=== PATIENT | male | born 1955 | race Caucasian/White ===

== ENCOUNTER 2020-03-20 22:08 | Inpatient (IN) | payer MEDICAID ==
[~2020-03-20] VITALS: Ht 172.7 cm; Wt 76.7 kg
--- NOTE | ~2020-03-20 | EMS ---
[address] [address] EMS Patient Care Report Name: MEGHNA DOWD Room #: 170-9 ADM IN M.R.#: [id number] Admission: 03/21/20 Attend Phys: Daniel Salgado Discharge: Date of : 59 Report #: [id number] THIS REPORT FOR: //name// Report Transmitted: 03/20/2020 23:33 EMS Care Summary [place], [place]/[facility] Incident [id number] @ 03/20/2020 21:31 Incident Location [address] [place] [address] / [place] [id number] Patient MEGHNA DOWD Male, 65 Years 1955 Patient Address Patient History Atrial Fibrillation, Patient Allergies No known allergies, Patient Medications Metoprolol, Chief Complaint ETOH, UNABLE TO WALK Disposition Transported No Lights/Roundup Dispatch Reason Unknown Problem/Person Down Transported To [facility] Narrative RESPONDED TO UNKNOWN WITH PD ON SCENE. UPON ARRIVAL PT FOUND SITTING ON CURB ALERT AND ORIENTED BUT SLURRING WORDS. PT IS ETOH AND HAS LARGE BOTTLE OF VODKA IN COAT. PT IS UNABLE TO WALK ON HIS OWN AND HAS BEEN ON THE BUS ALL DAY DRINKING ALCOHOL. PT ASSISTED WALK TO AMBULANCE COT. PT DENIES ANY INJURIES OR PAIN ANYWHERE. PT VITALS AND 3 LEAD OBTAINED. PT TRANSPORTED TO [facility] AND [address] [address] EMS Patient Care Report Name: MEGHNA DOWD Room #: 170-9 ADM IN M.R.#: [id number] Admission: 03/21/20 Attend Phys: Daniel Salgado Discharge: Date of : 59 Report #: [id number] SCOOTED TO BED WITH NO CHANGE IN CONDITION. HANDRAILS UP AND REPORT GIVEN TO NURSE. Initial Vitals @21:56P: 148,SpO2: 98, @21:59P: 146,R: 20,BP: 126/57, @21:53P: 147,R: 20,BP: 141/95,Pain: 0/10,GCS: 15,Glucose: 84,SpO2: 93,Revised Trauma: 12, Assessments @21:47MENTAL:Time Oriented,Person Oriented,Place Oriented,Event Oriented,SKIN:HEENT:Head/Face: No Abnormalities,Neck/Airway: No Abnormalities,LUNG SOUNDS:General: No Abnormalities,ABDOMEN:General: No Abnormalities,PELVIS//GI:No Abnormalities,EXTREMITIES:Left Arm: No Abnormalities,Right Arm: No Abnormalities,Left Leg: No Abnormalities,Right Leg: No Abnormalities,PULSE:NEURO:No Abnormalities,@21:52MENTAL:Person Oriented,Time Oriented,Event Oriented,Place Oriented,SKIN:HEENT:Head/Face: No Abnormalities,Eyes: No Abnormalities,Neck/Airway: No Abnormalities,LUNG SOUNDS:General: No Abnormalities,Left Upper: No Abnormalities,Right Upper: No Abnormalities,Left Lower: No Abnormalities,Right Lower: No Abnormalities,ABDOMEN:General: No Abnormalities,Left Upper: No Abnormalities,Right Upper: No Abnormalities,Left Lower: No Abnormalities,Right Lower: No Abnormalities,PELVIS//GI:No Abnormalities,EXTREMITIES:Left Arm: No Abnormalities,Right Arm: No Abnormalities,Left Leg: No Abnormalities,Right Leg: No Abnormalities,PULSE:NEURO:No Abnormalities, Impression Alcohol use Procedures @21:47ALS AssessmentSucceeded@21:533-Lead ECGSucceeded Timeline 21:25,Call Received 21:,Dispatch Notified 21:31,Dispatched 21:32,En Route 21:46,On Scene 21:46,At Patient 21:47,ALS Assessment,Succeeded, 21:53,BP: 141/95 M,PULSE: 147,RR: 20 R,SPO2: 93 Ox,ETCO2: ,B,PAIN: 0,GCS: 15, 21:53,3-Lead ECG,Succeeded, 21:54,Depart Scene 21:56,BP: / M,PULSE: 148,RR: R,SPO2: 98 Ox,ETCO2: ,BG: ,PAIN: ,GCS: , 21:59,BP: 126/57 M,PULSE: 146,RR: 20 R,SPO2: Ox,ETCO2: ,BG: ,PAIN: ,GCS: , [facility] [address] [place] [address] EMS Patient Care Report Name: NILEMEGHNA Room #: 170-9 ADM IN M.R.#: [id number] Admission: 03/21/20 Attend Phys: [place] Salgado Discharge: Date of : 59 Report #: [id number] 22:02,At Destination 22:17,Call Closed Disclaimer v1.1 Copyright 2020 [employer] This EMS Care Summary contains data elements from the applicable legal record (which may be displayed differently). It is designed to provide pertinent information for the following purposes: continuity of care, clinical quality, and state data reporting. The complete legal record is available to ED staff and administrators of the receiving hospital in [employer]'s Patient Tracker. All data is provided "as is."
[2020-03-20 22:10] VITALS: BP 135/95
[2020-03-20 23:18] LABS: HEMATOCRIT 41.2 % (42.0-52.0); HEMOGLOBIN 13.6 gm/dL (14.0-18.0); MCH 29.8 pg (26.0-34.0); MCHC 32.9 g/dL (28.0-37.0); MCV 90.4 fL (80.0-100.0); PLATELET COUNT 167 thou/uL (150-400); RBC 4.56 mil/uL (4.50-6.00); RDW 19.1 % (10.5-14.5); WBC 2.6 thou/uL (4.0-11.0)
[2020-03-20 23:23] LABS: ANION GAP 15 mmol/L (7-16); BUN 16 mg/dL (7-18); CHLORIDE 107 mmol/L (98-107); CO2 23 mmol/L (21-32); CREATININE 0.9 mg/dL (0.7-1.3); GLUCOSE 91 mg/dL (74-106); POTASSIUM 3.5 mmol/L (3.5-5.1); SODIUM 145 mmol/L (136-145)
[2020-03-20 23:33] LABS: ALBUMIN 3.6 g/dL (3.4-5.0); DIRECT BILIRUBIN < 0.1 mg/dL (<0.1-0.2); SGOT 93 U/L (15-37); SGPT 85 U/L (30-65); TOTAL BILIRUBIN 0.3 mg/dL (0.2-1.0); TOTAL PROTEIN 6.7 g/dL (6.4-8.2); TROPONIN-I <0.06 ng/mL (<0.06)
[2020-03-20 23:54] LABS: ABSOLUTE NEUTROPHILS 1.1 thou/uL (1.4-8.2); ANISOCYTOSIS 2+; POLYCHROMASIA 1+
[2020-03-21] VITALS (18 sets, daily range): BP systolic 92–124; BP diastolic 55–86
[2020-03-21] MEDS ORDERED: KAPSPARGO SPRIN25 MG PO (00:02)
[2020-03-21 00:51] LABS: CHOLESTEROL 174 mg/dL (<200); HDL CHOLESTEROL 95 mg/dL (>40); LDL CHOLESTEROL 70 mg/dL (<100); TC:HDL 1.8 Ratio (Not establshd); TRIGLYCERIDE 48 mg/dL (<150); VLDL 10 mg/dL (<40)
[2020-03-21 00:55] LABS: SERUM ASSESSMENT Clear
[2020-03-21 01:43] LABS: URINE BILIRUBIN NEGATIVE (Negative); URINE BLOOD NEGATIVE (Negative); URINE CLARITY CLEAR; URINE COLOR YELLOW; URINE GLUCOSE-RANDOM* NEGATIVE (Negative); URINE KETONES NEGATIVE (Negative); URINE LEUKOCYTES-REFLEX NEGATIVE (Negative); URINE NITRITE-REFLEX NEGATIVE (Negative); URINE PROTEIN (DIPSTICK) NEGATIVE (Negative); URINE UROBILINOGEN 0.2 E.U./dl (0.2-1.0)
[2020-03-21 02:05] LABS: AMP/METHAMP Negative (Negative); BARBITURATES Negative (Negative); BENZODIAZEPINES Negative (Negative); COCAINE Negative (Negative); METHADONE Negative (Negative); OPIATES Negative (Negative); PCP Negative (Negative)
--- NOTE | 2020-03-21 07:05 | NUR ---
PT ARRIVED TO UNIT APPROX 0130, ADMISSION AND ASSESSMENT COMPLETED. PT DROWSY BUT ANSWERS ALL QUESTIONS W/ WANDERING THOUGHT PROCESS. REPORTS DEPRESSION AND CHRONIC HEAVY ALCOHOL USE; UNABLE TO REMEMBER ANY MEDICATIONS EXCEPT METOPROLOL AND BUPROPION. MULTIPLE RECENT FALLS R/T ALCOHOL USE, HAS SCABS ON LEFT LEG AND OPEN SKIN TEAR RIGHT KNEE. HAS BEEN AFIB 90-105 OVERNIGHT; BP SOFT ON ARRIVAL TO UNIT, REDUCED CARDIZEM DRIP TO 10 MG/HR. SLIGHTLY MORE IMPULSIVE THIS AM; REMOVED SCD'S TO REDUCE FALL RISK. NO OTHER CONCERNS, SHIFT REPORT GIVEN AT 0700.
--- NOTE | 2020-03-21 11:20 | EKG ---
[facility] [address] [place] [address] ELECTROCARDIOGRAM REPORT Name: SOLOELIZABETHMEGHNA Room #: 359-P ADM IN M.R.#: [id number] Admission: 03/21/20 Attend Phys: [place] Salgado Discharge: Date of : 59 Report #: [id number] THIS REPORT FOR: cc: CARMELO Valdes family physician/PCP CARMELO - Keisha family physician/PCP Yonatan Fairchild MD [facility] THIS REPORT FOR: //name// [facility] ED Test Date: 2020-03-20 Test Time: 22:31:42 Pat Name: MEGHNA DOWD Department: Room: [facility] Gender: M Student Activities Director: JADA : 1955 Requested By: Eric House Order Number: [id number] MD: Yonatan Fairchild Measurements Intervals [place] Rate: 146 P: 89 RI: 98 QRS: -18 QRSD: 169 T: 269 QT: 377 QTc: 588 Interpretive Statements Atrial flutter Probable left ventricular hypertrophy Borderline T abnormalities, lateral leads No previous ECG available for comparison Electronically Signed On 03-21-2020 11:20:21 CDT by Yonatan Faircihld [email or web address] <ELECTRONICALLY SIGNED> By: Yonatan Fairchild MD, FACC 03/21/20 1120 30 30 Yonatan Fairchild MD, FAC /EPI
--- NOTE | 2020-03-21 11:46 | NUR ---
PT HAD AN EPISODE OF SVT/AFLUTTER THIS MORNING WITH HR MAX OF 156. RN TAUGHT THE PT THE BOX BREATHING TECHNIQUE AND PT WAS ABLE TO LOWER HR TO 120s. PT ALSO COMPLAINED OF ANXIETY THIS MORNING, WAS CONSULTED AND LORAZEPAM WAS ORDERD AND ADMINISTERED. PT WAS SCORING CIWA OF 4 AT THE BEGINNING OF THE SIHFT WITH HR OF 100, PROGRESSING PT SCORED 7 AT HR OF 120s, AND PT SCORED 9 ON CIWA. PT'S BP WAS ALSO LOWER AT THE BEGINNING OF THE SHIFT, WITH CARDIZEM DRIP RUNNING SBP AT 100s WITH DRIP RUNNING AT 10MCG. LATER PT'S CARDIZEM DRIP HAD TO BE INCREASED TO 20MCG. AND IS CURRENTLY TITRATED BACK TO 15MCG. CONTINUING TO MONITOR THE PT AT THIS TIME.
[2020-03-22 00:23] VITALS: BP 132/90
[2020-03-22 03:27] VITALS: BP 127/79
[2020-03-22 04:43] LABS: HEMATOCRIT 35.8 % (42.0-52.0); MCH 30.2 pg (26.0-34.0); MCHC 33.6 g/dL (28.0-37.0); MCV 89.8 fL (80.0-100.0); PLATELET COUNT 133 thou/uL (150-400); RBC 3.98 mil/uL (4.50-6.00); WBC 2.7 thou/uL (4.0-11.0)
[2020-03-22 04:46] LABS: CALCIUM 7.6 mg/dL (8.5-10.1); CREATININE 0.7 mg/dL (0.7-1.3); MAGNESIUM 1.1 mg/dL (1.8-2.4); POTASSIUM 3.4 mmol/L (3.5-5.1)
--- NOTE | 2020-03-22 05:23 | NUR ---
PT IS ABLE TO ANSWER ORIENTATION QUESTIONS, BUT IS FORGETFUL. DENIES ANY PAIN OR SOA. HE CONTINUES TO HAVE BILATERAL HAND TREMORS, ANXIETY, HEADACHE, AND INTERMITTENT NAUSEA. LORAZEPAM GIVEN PER EMAR FOR ETOH W/D SYMPTOMS. HE SLEPT MOST OF THE NIGHT. RESPIRATIONS EVEN AND UNLABORED. VSS. AFEBRILE. IVF INFUSING ORDERED. PT CAN BE IMPULSIVE AT TIMES WHEN HE NEEDS TO GO TO THE BTR. FALL PRECAUTIONS IN PLACE. PROGRESSING SLOWLY TOWARD POC GOALS.
[2020-03-22 08:32] VITALS: BP 127/74
[2020-03-22 09:31] LABS: ABSOLUTE NEUTROPHILS 1.2 thou/uL (1.4-8.2); ANISOCYTOSIS 1+; ATYPICAL LYMPHS 5 %; LARGE PLATELETS OCCASIONAL; POIKILOCYTOSIS SLIGHT
[2020-03-22 12:23] VITALS: BP 135/79
--- NOTE | 2020-03-22 12:29 | 2DMMODE ---
[facility] [place] [address] [place] [address] 2 D/M-MODE ECHOCARDIOGRAM Name: MEGHNA DOWD Room #: 203-P ADM IN M.R.#: [id number] Admission: 03/21/20 Attend Phys: Jitendra Guzman MD Discharge: Date of : 59 Report #: [id number] THIS REPORT FOR: cc: FAM - No family physician/PCP FAM - No family physician/PCP Karl Huertas MD [facility] ~ APPROVED REPORT Study performed: 03/22/2020 11:05:54 EXAM: Comprehensive 2D, Doppler, and color-flow Echocardiogram Patient Location: Echo lab Room #: 203 Status: routine BSA: 1.96 HR: 68 bpm BP: 127/64 mmHg Rhythm: NSR Other Information Study Quality: Good Indications Atrial Fibrillation 2D Dimensions RVDd: 41.37 mm IVSd: 12.00 (7-11mm) LVOT Diam: 22.34 (18-24mm) LVDd: 54.13 mm PWd: 10.00 (7-11mm) Ascending Ao: 37.55 (22-36mm) LVDs: 40.13 (25-40mm) Aortic Root: 39.09 mm Volumes Left Atrial Volume (Systole) Single Plane 4CH: 60.03 mL Single Plane 2CH: 50.01 mL LA ESV Index: 30.00 mL/m2 Aortic Valve AoV Peak Matt.: 1.11 m/s AO Peak Gr.: 4.94 mmHg LVOT Max P.29 mmHg LVOT Max V: 0.91 m/s SARAH Vmax: 3.20 cm2 [facility] [address] [address] 2 D/M-MODE ECHOCARDIOGRAM Name: MEGHNA DOWD Room #: 203-P [facility] IN [facility]#: [id number] Admission: 03/21/20 Attend Phys: Jitendra Guzman, Discharge: Date of : 59 Report #: [id number] Mitral Valve E/A Ratio: 0.8 MV Decel. Time: 228.80 ms MV E Max Matt.: 0.48 m/s MV A Matt.: 0.61 m/s MV PHT: 66.35 ms IVRT: 110.73 ms Pulmonary Valve PV Peak Matt.: 0.71 m/s PV Peak Gr.: 2.04 mmHg Pulmonary Vein P Vein S: 0.51 m/s P Vein A: 0.26 m/s P Vein D: 0.66 m/s P Vein A Dur.: 115.3 msec P Vein S/D Ratio: 0.77 Tricuspid Valve TR Peak Matt.: 2.87 m/s RAP Estimate: 10.00 mmHg TR Peak Gr.: 33.00 mmHg PA Pressure: 43.00 mmHg Left Ventricle The left ventricle is normal size. There is normal LV segmental wall motion. There is normal left ventricular wall thickness. Left ventricular systolic function is normal. LVEF 55%. Mild diastolic dysfunction Right Ventricle The right ventricle is normal size. The right ventricular systolic function is normal. Atria The left atrium size is normal. The right atrium size is normal. Aortic Valve The aortic valve is mildly sclerotic, trileaflet. No aortic regurgitation is present. There is no aortic valvular stenosis. Mitral Valve The mitral valve is normal in structure. Mild mitral regurgitation. No evidence of mitral valve stenosis. Tricuspid Valve The tricuspid valve is normal in structure. Mild tricuspid [facility] [address] [place] [address] 2 D/M-MODE ECHOCARDIOGRAM Name: MEGHNA DOWD Room #: 203-P ADM IN M.R.#: [id number] Admission: 03/21/20 Attend Phys: Jitendra Guzman, Discharge: Date of : 59 Report #: [id number] regurgitation. Estimated PAP is 40mmHg. Pulmonic Valve The pulmonary valve is normal in structure. Trace pulmonic regurgitation. Great Vessels The aortic root is normal in size. The ascending aorta is at the upper limits of normal (3.8cm). IVC is dilated and collapses <50% with inspiration. Pericardium There is no pericardial effusion. <Conclusion> Left ventricular systolic function is normal. There is normal LV segmental wall motion. LVEF 55%. Mild diastolic dysfunction The aortic valve is mildly sclerotic, trileaflet. No aortic regurgitation or stenosis The mitral valve is normal in structure. Mild mitral regurgitation. Mild tricuspid regurgitation. Estimated pulmonary artery pressure of 40mmHg. The ascending aorta is at the upper limits of normal (3.8cm). There is no pericardial effusion. <ELECTRONICALLY SIGNED> By: Karl Huertas MD, FACC 03/22/20 1229 1229 1229 Karl Huertas MD, FACC /INF
--- NOTE | 2020-03-22 14:18 | NUR ---
Nutrition: Mg 1.1, K 3.4, REC electrolyte replacement
--- NOTE | 2020-03-22 16:20 | NUR ---
ASSUMED CARE AT CHANGE OF SHIFT. ALERT X3 WITH FORGETFULNES. PT UNSTEADY STAND BY ASSIST. TOLERATING MEALS AND DRINKING 50% OF SUPPLEMENTS. CIWA LEVEL 7 AT THIS TIME. TREATING ANXIETY/CIWA PER CHAITANYA. DENIES PAIN, DENIES SOB. FALL PRECAUTIONS IN PLACE. CALLS FOR ASSISTANCE.
[2020-03-22 18:10] VITALS: BP 140/73
[2020-03-22 19:34] VITALS: BP 110/77
--- NOTE | 2020-03-23 04:01 | NUR ---
Assumed pt care at 1900. Pt is alert but confused and going through withdrawal. Pt was impulsive and agitated through the night. CIWA protocol completed and ativan administered as appropriate. Fall precaution in place. Scheduled meds administered to pt. Pt was disoriented, confused and awake through the night. CIWA protocol in place. Continue to monitor pt. No further needs at this time.
[2020-03-23 04:30] VITALS: BP 152/97
[2020-03-23 05:37] LABS: CREATININE 0.9 mg/dL (0.7-1.3); MAGNESIUM 1.8 mg/dL (1.8-2.4); POTASSIUM 3.8 mmol/L (3.5-5.1)
[2020-03-23 06:00] LABS: HEMATOCRIT 39.2 % (42.0-52.0); HEMOGLOBIN 12.8 gm/dL (14.0-18.0); MCH 30.2 pg (26.0-34.0); MCHC 32.7 g/dL (28.0-37.0); MCV 92.2 fL (80.0-100.0); RBC 4.25 mil/uL (4.50-6.00); RDW 19.2 % (10.5-14.5); WBC 3.2 thou/uL (4.0-11.0)
[2020-03-23 07:45] VITALS: BP 146/90
[2020-03-23 13:06] VITALS: BP 145/99
--- NOTE | 2020-03-23 15:15 | NUR ---
Met with patient who is withdrawing from ETOH. Patient reports [id number] [facility] [address]. Patient reports he works at [employer]. He reports his sister Dennise Gauthier is emergency contact. Patient could not give accurate phone number. Gave 5 different numbers. RN reports patient has his cell phone and was speaking on it earlier. When asked if patient knew where he was he gave directions to [address], he wants to purchase tobacco. Await for patient to become less confused for assessment.
[2020-03-23 17:01] VITALS: BP 157/95
--- NOTE | 2020-03-23 18:16 | NUR ---
ASSUMED CARE PT SHIFT CHANGE. ASSESSMENTS CHARTED.MEDS GIVEN PER AUG. PT AWAKE, ORIENTED TO PERSON, CONFUSED. PT FREQUENTLY REORIENTED. PT ATTEMPTING TO GET OUT OF BED SEVERAL TIMES, ALL FALL PRECAUTIONS REMAINED IN PLACE. CIWA SCORES CHARTED. PHYSICIAN NOTIFIED OF CIWA SCORES, ORDERS RECEIVED. PT SEEN BY DR HARRINGTON, ORDERS RECEIVED FOR ADDITIONAL MEDS. PT CURRENTLY LAYING IN BED, PT IS CALM. DENIES NEEDS. WILL CONT TO MONITOR. WILL FOLLOW POC, AND PASS ON REPORT TO NOC RN.
[2020-03-23 20:00] VITALS: BP 137/98
[2020-03-24 04:40] VITALS: BP 149/99
--- NOTE | 2020-03-24 06:29 | NUR ---
PATIENT IS PROGRESSING SLOWLY IN HIS CARE PLAN. VITAL SIGNS STABLE WITH PATIENT HAVING NO COMPLAINTS OF PAIN OR NAUSEA. PATIENT HAS BEEN MOSTLY DISORIENTED THROUGHOUT SHIFT AND HALLUCINATING WHILE AWAKE. CIWA PER PROTOCOL WITH MEDICATION PROVIDED APPROPRIATELY. OXYGEN PROVIDED FOR PATIENTS SLEEP APNEA PRN. FREQUENT INCONTINENCE WITH PATIENT PROVIDED SKIN CARE FREQUENTLY. CONTINUE PLAN OF CARE.
[2020-03-24 07:40] VITALS: BP 131/99
[2020-03-24 11:47] VITALS: BP 143/94
[2020-03-24 16:28] VITALS: BP 139/37
--- NOTE | 2020-03-24 17:42 | NUR ---
ASSUMED CARE AT CHANGE OF SHIFT. ALERT TO SELF ONLY. ABLE TO REORRIENT TO PLACE AFTER 1300. CONFUSION IMPROVING.CONTINUES ON CIWA TREATING PER ORDERS. IMPULSIVE WHEN INCONTINENET. ASSISTANCE WITH BEVERAGES. UPDATED DR HARRINGTON ON PT'S PROGRESS. CALL PREACAUTIONS IN PLACE. STAFF TO ANTICIPATE NEEDS.
[2020-03-24 19:40] VITALS: BP 157/98
[2020-03-25] VITALS (9 sets, daily range): BP systolic 96–137; BP diastolic 53–93
--- NOTE | 2020-03-25 17:34 | NUR ---
PT CARE ASSUMED AT 0700. ASSESSMENT CHARTED. MEDICATION CHARTED. CIWA: 6 LFA IV (COBAND). NORMAL SINUS RHYTHM. EF 55%. O2 2LPM NC. PT CALM.
--- NOTE | 2020-03-26 03:03 | NUR ---
PT CARE ASSUMED WITH PT IN BED SLEEPING.PT IS A/O X3.PT USED URINAL.PT IS ON 2L OF O2.PT WAS SLEEPY .PT APPEARED TO BE IN NO ACUTE DISTRESS OR PAIN.V/S STABLE.WILL CONTINUE TO MONITOR
[2020-03-26 03:32] VITALS: BP 147/84
[2020-03-26 06:09] LABS: HEMATOCRIT 39.1 % (42.0-52.0); MCH 30.6 pg (26.0-34.0); MCHC 33.3 g/dL (28.0-37.0); MCV 91.9 fL (80.0-100.0); PLATELET COUNT 159 thou/uL (150-400); RBC 4.25 mil/uL (4.50-6.00); RDW 18.9 % (10.5-14.5); WBC 3.6 thou/uL (4.0-11.0)
[2020-03-26 06:23] LABS: ALBUMIN 2.8 g/dL (3.4-5.0); CALCIUM 8.8 mg/dL (8.5-10.1); CREATININE 0.8 mg/dL (0.7-1.3); MAGNESIUM 1.6 mg/dL (1.8-2.4); PHOSPHORUS 3.6 mg/dL (2.5-4.9); POTASSIUM 3.6 mmol/L (3.5-5.1); TOTAL BILIRUBIN 0.4 mg/dL (0.2-1.0); TOTAL PROTEIN 5.9 g/dL (6.4-8.2)
[2020-03-26 07:45] VITALS: BP 138/97
[2020-03-26 11:01] LABS: ABSOLUTE NEUTROPHILS 1.9 thou/uL (1.4-8.2); ANISOCYTOSIS 1+; PLATELET ESTIMATE NORMAL
[2020-03-26 11:45] VITALS: BP 123/87; BP 138/97
[2020-03-26 13:56] VITALS: BP 123/87
[2020-03-26] MEDS ORDERED: NICOTINE1 EAC2 TRANSDERM (15:47)
[2020-03-26] MEDS ORDERED: PEPCID20 MG PO (15:48)
[2020-03-26] MEDS ORDERED: SEROQUEL 100 M100 M1 PO (15:48)
[2020-03-26] MEDS ORDERED: FOLIC ACID1 MG PO (15:49)
[2020-03-26] MEDS ORDERED: VITAMIN B-1100 M2 PO (15:50)
[2020-03-26] MEDS ORDERED: PRENATAL COMPL1 EACH PO (15:50)
[2020-03-26] MEDS ORDERED: KAPSPARGO SPRIN25 MG PO (16:00)
[2020-03-26 16:45] VITALS: BP 123/87
--- NOTE | 2020-03-26 16:45 | NUR ---
CIWA much improved. Pt wanting to dc home today. Cab voucher provided and scripts (30 day supply) vouchered per the [facility] outpt pharmacy. Pt cleared by therapy and safe to be up ad liz. Nursing to take pt to the outpt pharmacy to get scripts on the way to the ER entrance for cab ride prior to 6pm this evening. Pt aware [facility]u and has an apt. He denies any other dc needs.
[2020-03-26 17:07] VITALS: BP 123/87
--- NOTE | 2020-03-26 19:11 | NUR ---
PT CARE ASSUMED AT 0700, ASSESSMENTS CHARTED. MEDICATION CHARTED. CIWA:4 NORMAL SINUS RHYTHM. O2 2LPM WHILE SLEEPING. LFA IV. PHYSICAL THERAPY EVALUATED AND APPROVED DISCHARGE. PT TO BE DISCHARGED VIA CAB. PAPERWORK SIGNED. TELEMETRY D/C'D. IV D/C'D.
== END 2020-03-26 18:26 | disposition home or self-care (01) | DRG 897 ==
LOC: ER 22:08 → 2N 03-21 00:07 → EROBS 03-21 00:07 → 3W 03-21 01:25 → 2N 03-21 16:09
PROVIDERS: Emergency Medicine; Internal Medicine; Nurse Practitioner Family; ADMIT Internal Medicine; ATTEND Internal Medicine
DX: F10.239 Alcohol dependence with withdrawal, unspecified (principal); I48.92 Unspecified atrial flutter; I48.91 Unspecified atrial fibrillation; F10.229 Alcohol dependence with intoxication, unspecified; F32.9 Major depressive disorder, single episode, unspecified; F41.9 Anxiety disorder, unspecified; Z20.828 Contact with and (suspected) exposure to other viral communicable diseases; R74.01 Elevation of levels of liver transaminase levels; Z71.6 Tobacco abuse counseling; Z79.899 Other long term (current) drug therapy
CPT/HCPCS: 10081